=== PATIENT | female | born 1950 | race Caucasian/White ===

== ENCOUNTER → 2023-11-15 08:06 | Outpatient (REF) | payer OTHER, SELFPAY | LOC: HWWDC 08:06 | PROVIDERS: ATTENDING PHYSICIAN Physician Assistant Medical | DX: Z12.31 Encounter for screening mammogram for malignant neoplasm of breast (principal) | CPT/HCPCS: 77063; 77067 ==

== ENCOUNTER → 2024-06-07 11:49 | Outpatient (REF) | payer OTHER, SELFPAY | LOC: HWRAD 11:49 | PROVIDERS: ATTENDING PHYSICIAN Physician Assistant Medical | DX: Z91.81 History of falling (principal); M25.511 Pain in right shoulder | CPT/HCPCS: 73030 ==

== ENCOUNTER → 2024-11-15 08:48 | Outpatient (REF) | payer OTHER, SELFPAY | LOC: HWWDC 08:48 | PROVIDERS: ATTENDING PHYSICIAN Physician Assistant Medical | DX: Z12.31 Encounter for screening mammogram for malignant neoplasm of breast (principal) | CPT/HCPCS: 77063; 77067 ==